=== PATIENT | female | born 1975 | race Caucasian/White ===

== ENCOUNTER 2020-03-19 15:13 | Outpatient (REF) | payer MEDICAID, SELFPAY | END 2020-03-19 15:14 | disposition home or self-care (01) | LOC: HO.LAB 15:13 | PROVIDERS: Visit Provider Internal Medicine | DX: Z20.822 Contact with and (suspected) exposure to COVID-19 (principal) | CPT/HCPCS: 36415; C9803; U0003 ==

== ENCOUNTER 2020-04-04 17:08 | Outpatient (REF) | payer MEDICAID, SELFPAY | END 2020-04-04 17:09 | disposition home or self-care (01) | LOC: HO.LAB 17:08 | PROVIDERS: Visit Provider Internal Medicine | DX: Z20.822 Contact with and (suspected) exposure to COVID-19 (principal) | CPT/HCPCS: 36415; C9803; U0003; U0005 ==

== ENCOUNTER 2021-02-13 09:47 | Outpatient (REF) | payer MEDICAID, SELFPAY ==
[2021-02-13 10:08] LABS: COVID-19 Test Negative (Negative)
== END 2021-02-13 09:48 | disposition home or self-care (01) ==
LOC: HO.LAB 09:47
PROVIDERS: Visit Provider Internal Medicine
DX: Z20.822 Contact with and (suspected) exposure to COVID-19 (principal)
CPT/HCPCS: 36415; 87635; C9803

== ENCOUNTER 2021-03-11 09:37 | Outpatient (REF) | payer MEDICAID, SELFPAY ==
[2021-03-11 12:21] LABS: Binax Internal Control QC Valid; Binax Lot number: 17705; Binax Now Covid-19 Ag Negative (Negative)
== END 2021-03-11 09:38 | disposition home or self-care (01) ==
LOC: HO.LAB 09:37
PROVIDERS: Visit Provider Internal Medicine
DX: Z20.822 Contact with and (suspected) exposure to COVID-19 (principal)
CPT/HCPCS: 36415; C9803

== ENCOUNTER 2021-03-27 09:55 | Outpatient (REF) | payer MEDICAID, SELFPAY ==
--- NOTE | ~2021-03-27 | MM_ITS ---
EXAMINATION: MM SCREENING DIGITAL BREAST TOMOSYNTHESIS, BILATERAL CLINICAL INFORMATION: Screening. Asymptomatic. The lifetime risk of breast cancer based on the Tyrer-Cuzick Model is 12%. COMPARISON: Mammography: 06/25/2016, 04/18/2015 TECHNIQUE: Digital breast tomosynthesis is performed in both the craniocaudal and mediolateral oblique views along with computer-aided detection (CAD). Synthesized 2D images are generated from the tomosynthesis. FINDINGS: The breasts are heterogeneously dense, which may obscure small masses (ACR BI-RADS breast composition Category c). There are probable fibrocystic changes mid upper outer right breast with several grouped smooth round masses ranging in size from up to 1.6 cm. Patient will be recalled for additional targeted ultrasound. The remainder of the breasts show no significant changes from prior studies. There are no abnormal calcifications. No architectural abnormality. The axilla and skin contours are unremarkable. MM/MM tomosynthesis screening BI IMPRESSION: 1. Right: Probable fibrocystic changes mid upper outer quadrant. 2. Left: No mammographic evidence of malignancy. ASSESSMENT: BI-RADS 0: Incomplete - Need Additional Imaging Evaluation RECOMMENDATION: 1. Targeted ultrasound right breast. 2. Radiology department staff will contact the patient for additional imaging. This patient's information was entered into a reminder system with a target due date for their next mammogram.
== END 2021-03-27 09:56 | disposition home or self-care (01) ==
LOC: HO.MAMMO 09:55
PROVIDERS: PCP Student in an Organized Health Care Education/Training Program; Visit Provider Student in an Organized Health Care Education/Training Program
DX: Z12.31 Encounter for screening mammogram for malignant neoplasm of breast (principal)
CPT/HCPCS: 77063; 77067

== ENCOUNTER 2021-04-02 10:52 | Outpatient (REF) | payer MEDICAID, SELFPAY ==
--- NOTE | ~2021-04-02 | US_ITS ---
EXAMINATION: US DIAGNOSTIC ULTRASOUND BREAST, RIGHT CLINICAL INFORMATION: Recall from screening for probable fibrocystic changes mid upper outer right breast. COMPARISON: Mammography 03/27/2021, 06/25/2016, 04/18/2015 (baseline). TECHNIQUE: Ultrasound right breast is targeted to the upper outer quadrant. Grayscale imaging and color Doppler are performed without and with harmonics. FINDINGS: There are multiple regional simple cysts in the area of recent mammographic concern upper outer quadrant right breast. Largest cyst is approximately 1.9 x 0.8 cm. Several smaller subcentimeter cysts are also present. There is no solid mass, architectural abnormality, duct ectasia, or edema in the soft tissue planes. Results are discussed with the patient at time of visit. US/US breast RT limited IMPRESSION: Regional simple cysts upper outer right breast corresponding to recent mammography. ASSESSMENT: BI-RADS 2: Benign RECOMMENDATION: Routine annual mammography screening. This patient's information was entered into a reminder system with a target due date for their next mammogram.
== END 2021-04-02 10:53 | disposition home or self-care (01) ==
LOC: HO.MAMMO 10:52
PROVIDERS: Visit Provider Student in an Organized Health Care Education/Training Program
DX: N60.11 Diffuse cystic mastopathy of right breast (principal)
CPT/HCPCS: 76642

== ENCOUNTER 2021-09-30 11:26 | Outpatient (REF) | payer MEDICAID, SELFPAY ==
[2021-09-30 12:03] LABS: COVID-19 Test Negative (Negative); IDNOW Serial# 08D9AD1C
== END 2021-09-30 11:27 | disposition home or self-care (01) ==
LOC: HO.LAB 11:26
PROVIDERS: Visit Provider Internal Medicine
DX: Z20.822 Contact with and (suspected) exposure to COVID-19 (principal)
CPT/HCPCS: 87635; C9803

== ENCOUNTER 2022-04-02 10:00 | Outpatient (REF) | payer MEDICAID, SELFPAY ==
--- NOTE | ~2022-04-02 | MM_ITS ---
EXAMINATION: MM SCREENING DIGITAL BREAST TOMOSYNTHESIS, BILATERAL CLINICAL INFORMATION: Screening. Asymptomatic. The lifetime risk of breast cancer based on the Tyrer-Cuzick Model is 11%. COMPARISON: Mammography: 03/27/2021, 06/25/2016, 04/18/2015; right breast ultrasound 04/02/2021 TECHNIQUE: Digital breast tomosynthesis is performed in both the craniocaudal and mediolateral oblique views along with computer-aided detection (CAD). Synthesized 2D images are generated from the tomosynthesis. FINDINGS: The breasts are heterogeneously dense, which may obscure small masses (ACR BI-RADS breast composition Category c). There are no significant masses, abnormal calcifications, or other abnormalities. Fibrocystic changes upper outer right breast are decreased from prior exam. The axilla and skin contours are unremarkable. MM/MM tomosynthesis screening BI IMPRESSION: No mammographic evidence of malignancy. ASSESSMENT: BI-RADS 2: Benign RECOMMENDATION: Routine annual mammography screening. This patient's information was entered into a reminder system with a target due date for their next mammogram.
== END 2022-04-02 10:01 | disposition home or self-care (01) ==
LOC: HO.MAMMO 10:00
PROVIDERS: Visit Provider Student in an Organized Health Care Education/Training Program
DX: Z12.31 Encounter for screening mammogram for malignant neoplasm of breast (principal)
CPT/HCPCS: 77063; 77067

== ENCOUNTER 2023-01-27 10:10 | Outpatient (REF) | payer MEDICAID, SELFPAY ==
[2023-01-27 14:52] LABS: Alanine Aminotransferase 13 U/L (0-31); Albumin Level 4.1 g/dL (3.5-5.0); Alkaline Phosphatase 44 U/L (39-117); Anion Gap 10 (12-20); Aspartate Amino Transferase 14 U/L (5-31); Bilirubin Direct 0.1 mg/dL (0.0-0.5); Bilirubin Total 0.3 mg/dL (0.0-1.0); Blood Urea Nitrogen 11 mg/dL (9-16); Carbon Dioxide 26 mmol/L (22-29); Chloride 103 mmol/L (96-108); Cholesterol 224 mg/dL (<200); Estimated Glomerular Filt Rate > 60; Glucose Random 71 mg/dL (60-115); HDL Cholesterol 61 mg/dL (>40); LDL Cholesterol Calculated 142 mg/dL (<100); Potassium 3.7 mmol/L (3.3-5.1); Sodium 135 mmol/L (135-145); Triglycerides 107 mg/dL (<150)
== END 2023-01-27 10:11 | disposition home or self-care (01) ==
LOC: HO.CHCLDS 10:10
PROVIDERS: Visit Provider Student in an Organized Health Care Education/Training Program
DX: E66.9 Obesity, unspecified (principal)
CPT/HCPCS: 36415; 80048; 80061; 80076

== ENCOUNTER → 2023-01-28 09:39 | Outpatient (REF) | payer MEDICAID, SELFPAY ==
--- NOTE | 2023-01-28 09:43 | HM_ITS ---
Conclusion: 1. Patient was monitored for total period of 2 days 2. Baseline was normal sinus with average heart of 88 beats per minute 3. No significant pauses noted 4. Rare PVCs noted 5. No patient reported symptoms MTDD
== END ==
LOC: HO.CARD 09:39
PROVIDERS: PCP Student in an Organized Health Care Education/Training Program; Visit Provider Student in an Organized Health Care Education/Training Program
DX: R00.2 Palpitations (principal)
CPT/HCPCS: 93225

== ENCOUNTER → 2023-01-28 09:43 | Outpatient (BNV) | payer MEDICAID, SELFPAY | PROVIDERS: PCP Student in an Organized Health Care Education/Training Program; Visit Provider Internal Medicine Cardiovascular Disease | DX: I49.3 Ventricular premature depolarization (principal) | CPT/HCPCS: 93227 ==

== ENCOUNTER 2023-04-07 10:14 | Outpatient (REF) | payer MEDICAID, SELFPAY | END 2023-04-07 10:15 | disposition home or self-care (01) | LOC: HO.MAMMO 10:14 | PROVIDERS: PCP Student in an Organized Health Care Education/Training Program; Visit Provider Student in an Organized Health Care Education/Training Program | DX: Z12.31 Encounter for screening mammogram for malignant neoplasm of breast (principal) | CPT/HCPCS: 77063; 77067 ==

== ENCOUNTER → 2023-04-07 10:15 | Outpatient (BNV) | payer MEDICAID, SELFPAY | PROVIDERS: PCP Student in an Organized Health Care Education/Training Program; Visit Provider Radiology Diagnostic Radiology | DX: Z12.31 Encounter for screening mammogram for malignant neoplasm of breast (principal) | CPT/HCPCS: 77063; 77067 ==

== ENCOUNTER 2024-01-27 | Outpatient (REF) | payer MEDICAID, SELFPAY ==
[2024-02-01 10:47] LABS: HPV 16,18/45 See PAP report
== END 2024-01-27 00:01 | disposition home or self-care (01) ==
LOC: HO.LNP
PROVIDERS: Visit Provider Advanced Practice Midwife
DX: R87.610 Atypical squamous cells of undetermined significance on cytologic smear of cervix (ASC-US) (principal)
CPT/HCPCS: 87624; 88175

== ENCOUNTER 2024-04-13 10:37 | Outpatient (REF) | payer MEDICAID, SELFPAY ==
--- OUTSIDE RECORDS SUMMARY | 2024-04-13 12:23 | XMS_ITS | Clinical Summary ---
Author Organization [facility] Address [address] [place] [address] [address] [place] [address] Care Team Providers Care Blank Driller Name Role Phone Janet Walton MD Primary Care Provider [phone] Allergies Active Allergy Reactions Criticality Noted Date Comments Aspirin Hives High 01/19/2023 Medications albuterol (2.5 MG/3ML) 0.083% nebulizer solution Inhale 3 mL every 4 (four) hours. 04/10/2015 Active albuterol (ProAir HFA) 108 (90 Base) MCG/ACT inhaler Inhale every 6 (six) hours. 04/02/2015 Active loratadine (Claritin) 10 MG tablet Take 1 tablet by mouth in the morning. 04/10/2015 Active Active Problems Problem Noted Date Diagnosed Date ASCUS of cervix with negative high risk HPV 01/01 Assessment & Plan (01/27/2023 4:18 PM EST): -hx of ASCUS -repeat testing in 3 years pending results Asthma 03/14/2013 01/19/2023 Umbilical hernia 07/29/2011 01/19/2023 Assessment & Plan (01/27/2023 4:27 PM EST): -stable at this time -report onset of pain or if no longer reducible Encounters Date Type Department Care Team Description 01/27/2024 10:00 AM EST Procedure Visit [facility] [address] [place], [place] [id number] Smita Thomson CNM ASCUS of cervix with negative high risk HPV (Primary Dx); Tinea cruris; Perimenopausal vasomotor symptoms 01/27/2024 Travel 01/20/2024 Travel from Last 3 Months Immunizations Name Administration Dates Next Due Hep B, adult 08/11/2012,08/26/2011,07/29/2011 Tdap 01/19/2023,08/26/2011 Family History Medical History Relation Name Comments Bilateral breast cancer Mother's Sister Relation Name Status Comments Mother's Sister Social History Tobacco Use Types Packs/Day Years Used Date Smoking Tobacco: Never Smokeless Tobacco: Never Tobacco Cessation:Counseling Given: Not Answered Alcohol Use Standard Drinks/Week Comments Never 0 (1 standard drink = 0.6 oz pur e alcohol) Depression Answer Date Recorded Patient Health Questionnaire-9 Score 0 01/19/2023 Patient Health Questionnaire-9 Score 0 01/19/2023 Last PHQ-9: Questionnaire Data Not on file 1 03/21/2022 Depression Answer Date Recorded Patient Health Questionnaire-2 Score 0 01/19/2023 Comments No Sex and Gender Information Value Date Recorded Sex Assigned at Female 12/30/2021 10:20 AM EDT Legal Sex Female 10:20 AM EDT Gender Identity Female 12/30/2021 10:20 AM EDT Sexual Orientation Choose not to disclose 2021 10:20 AM EDT Last Filed Vital Signs Vital Sign Reading Time Taken Comments Blood Pressure 132/79 01/27/2024 10:09 AM EST Pulse 80 01/27/2024 10:09 AM EST Temperature 36.4 ??C (97.6 ??F) 01/27/2024 10:[address] Respiratory Rate 20 01/27/2024 10:09 AM EST Oxygen Saturation - - Inhaled Oxygen Concentration - - Weight 82.7 kg (182 lb 6.4 oz) 01/27/2024 10:09 AM EST Height 157.5 cm (5' 2 ) 01/27/2024 10:09 AM EST Body Mass Index 33.36 01/27/2024 10:09 AM EST Plan of Treatment Health Maintenance Due Date Last Done Comments CT Colonography 1975 Colonoscopy 1975 FIT 1975 FOBT 1975 HIV Screening 1975 SDOH Screening 1975 Sigmoidoscopy 1975 Alcohol/Substance Use Screening 1987 Family Planning (PISQ) 1990 Hepatitis C Screening 1993 Pneumococcal Vaccine: Pediatrics (0 to 5 Years) and At-Risk Patients (6 to 49) Years) (1 of 2 - PCV) 1994 COVID-19 Vaccine (4 - 2023-2 5 season) 2023 03/15/2022, 06/28/2020, 06/01/2020 Influenza Vaccine (#1) 2023 Depression Screening 01/20/2024 01/19/2023, 01/19/2023 Mammogram 04/07/2024 04/07/2023, 04/02/2022, 03/27/2021 Tobacco Screening 01/26/2025 01/27/2024 Zoster Vaccines (1 of 2) 2025 Colorectal Cancer Screening 03/03/2026 FIT DNA/Cologuard 03/03/2026 03/03/2023 Lipid Panel 01/28/2028 01/27/2023, 02/05/2021 Cervical Cancer Screening 01/26/2029 HPV/Cotest 01/26/2029 02/04/2021, 08/25/2017 Pap Smear 01/26/2029 01/27/2024, 02/04/2021 DTaP/Tdap/Td Vaccines (3 - T d or Tdap) 01/19/2033 01/19/2023, 08/26/2011 RSV Patients and Patients Aged 60 years or older (1 - 1-dose 75+ series) 2050 Hepatitis B Vaccines Completed 08/11/2012, 08/26/2011, 07/29/2011 HIB Vaccines Aged Out No longer eligi ble based on patient's age to complete this topic HPV Vaccines Aged Out No longer eligi ble based on patient's age to complete this topic Hepatitis A Vaccines Aged Out No long er eligible based on patient's age to complete this topic IPV Vaccines Aged Out No longer eligi ble based on patient's age to complete this topic Meningococcal Vaccine Aged Out No rich majo eligible based on patient's age to complete this topic RSV under 20 months Aged Out No longe r eligible based on patient's age to complete this topic Rotavirus Vaccines Aged Out No longer eligible based on patient's age to complete this topic Procedures Procedure Name Priority Date/Time Associated Diagnosis Comments PAP SMEAR Routine 01/27/2024 10:18 AM EST ASCUS of cervix with negative high risk HPV BI MAMMOGRAM SCREENING TOMOSYNTHESIS BILATERAL Routine 04/07/2023 10:35 AM EST LAB COLOGUARD?? COLON CANCER SCREEN Routine 03/03/2023 8:35 PM EST Encounter for screening for malignant neoplasm of colon LIPID PANEL, STANDARD Routine 01/27/2023 10:13 AM EST Obesity (BMI 30-39.9) HPV MRNA E6/E7 Routine 02/04/2021 10:41 AM EST from Last 3 Months or Most Recently Relevant to Health Maintenance Results * Pap Smear (01/27/2024 10:18 AM EST) Swab Cervix uteri structure / Unknown 01/27/2024 10:18 AM EST 02/01/2024 9:30 AM EST Narrative [facility] - 02/04/2024 10:14 AM EST ----- ------- Name: Lexy Richards ?Age/Sex: 48/F ? : 1975 Unit#: [id number] ?? Attend Dr: ?Re01/27/24 ?Status: PRE REF ? Location: HO.LNP ?Disch: ? ----- ------- SPEC : [id number] ?RECD: 02/01/24 ? STATUS: ??SOUT ? REQ NUM: [id number] ? STEFFANY: 01/27/24 ? SUBM DR: SMITA THOMSON CNM ? ENTERED: ??02/01/24 ?SP TYPE: Pap Smr ?OTHR DR: ? ORDERED: ??Pap Smear ? Interpretation ?? Satisfactory for evaluation. ?? Negative for intraepithelial lesion or malignancy. ? HPV High Risk: ??Negative ? HPV Genotyping 16: ??Negative ?? HPV Genotyping 18: ??Negative ?Clinical Information LMP: Unknown date Previous PAP test: 2020, ASCUS, HPV neg ? Material Received ?? ThinPrep-Cervical ----- ------- Signed (signature on file) FLOR[facility] Polanco ([facility] 02/04/24 1014 ? ----- ------- ? END OF REPORT ? us Smita Thomson [facility] CYTOLOGY ORDERABLES F inal Result [facility] [address] [place] [phone] * BI Mammogram Screening Tomosynthesis Bilateral (04/07/2023 10:35 AM EST) Anatomical Region Laterality Modality Breast Bilateral Mammography 04/07/2023 10:3 5 AM EST Narrative 05/02/2023 4:32 PM EST ? [facility] [place] ? [address] [facility] ?[place] [address] ? Mammography Report ? Signed ? Patient: Maurice,Lexy ?MR#: [id number] ?? 8 ? : 1975 ?Acct:[id number] ? Age/Sex: 48 / F ?ADM Date: 02/06/24 ? Loc: HO.MAMMO ? Attending Dr: Janet Walton MD ? Ordering Physician: Janet Walton MD ?Results: 1Negati ?? ve ? Date of Service: 04/07/23 ?Follow Up: 1 Year From Orig ?? inal Mammogram ? Procedure(s): MM tomosynthesis screening BI ?? Accession Number(s): [id number] ? cc: Janet Walton MD ? EXAMINATION: ?? MM SCREENING DIGITAL BREAST TOMOSYNTHESIS, BILATERAL ? CLINICAL INFORMATION: ? Screening. Asymptomatic. ? COMPARISON: ?? Mammography: This study is compared with prior exams dating back to ?? 2017. ? TECHNIQUE: ?? Digital breast tomosynthesis is performed in both the craniocaudal and ?? mediolateral oblique views along with computer-aided detection (CAD). ?? Synthesized 2D images are generated from the tomosynthesis. ? FINDINGS: ?? The breasts are heterogeneously dense, which may obscure small masses ?? (ACR BI-RADS breast composition Category c). ? There are no significant masses, abnormal calcifications, or other ?? abnormalities. ? MM/MM tomosynthesis screening BI ?? IMPRESSION: ?? No mammographic evidence of malignancy. ? ASSESSMENT: ? BI-RADS BI-RADS 1 - Negative ? RECOMMENDATION: ?? Routine annual mammography screening. ? 1 year F/U ? This examination should not preclude the clinical evaluation of a ?? suspicious palpable abnormality. ? This patient's information was entered into a reminder system with a ?? target due date for their next mammogram. ? Dictated By: ?Jia Licea MD ? Signed By: ?<Electronically signed by Jia Licea MD in OV> ? 05/02/23 1628 ? DD/ 1035 ? TD/TT: ? Breast Trimmer: ? Procedure Note Donotuseinterpreter, Image - 05/02/2023 [facility] [address] [place] [address] Mammography Report Signed Patient: Liliana Richards#: [id number] 8 : 1975Acct:[id number] Age/Sex: 48 / FADM Date: 04/07/23 Loc: HO.MAMMO Attending Dr: Janet Walton MD Ordering Physician: Janet Walton MDResults: 1Negati ve Date of Service: 04/07/23Follow Up: 1 Year From Orig inal Mammogram Procedure(s): MM tomosynthesis screening BI Accession Number(s): [id number] cc: Janet Walton MD EXAMINATION: MM SCREENING DIGITAL BREAST TOMOSYNTHESIS, BILATERAL CLINICAL INFORMATION: Screening. Asymptomatic. COMPARISON: Mammography: This study is compared with prior exams dating back to 2017. TECHNIQUE: Digital breast tomosynthesis is performed in both the craniocaudal and mediolateral oblique views along with computer-aided detection (CAD). Synthesized 2D images are generated from the tomosynthesis. FINDINGS: The breasts are heterogeneously dense, which may obscure small masses (ACR BI-RADS breast composition Category c). There are no significant masses, abnormal calcifications, or other abnormalities. MM/MM tomosynthesis screening BI IMPRESSION: No mammographic evidence of malignancy. ASSESSMENT: BI-RADS BI-RADS 1 - Negative RECOMMENDATION: Routine annual mammography screening. 1 year F/U This examination should not preclude the clinical evaluation of a suspicious palpable abnormality. This patient's information was entered into a reminder system with a target due date for their next mammogram. Dictated By: Jia Licea MD Signed By: <Electronically signed by Jia Licea MD in OV> 05/02/23 1628 DD/ 1035 TD/TT: Breast Trimmer: Janet Walton MD IMG BI PROCEDURES Edited Result - Final * Cologuard?? colon cancer screening (03/03/2023 8:35 PM EST) Cologuard Result Negative Negative 03/12/19 4:26 AM EST [facility] (CLIA #:[id number]) Comment: NEGATIVE TEST RESULT. A negative Cologuard result indicates a low likelihood that a colorectal cancer (CRC) or advanced adenoma (adenomatous polyps with more advanced pre-malignant features) ??is present. The chance that a person with a negative Cologuard test has a colorectal cancer is less than 1 in 1500 (negative predictive value >99.9%) or has an ??advanced adenoma is less than ??5.3% (negative predictive value 94.7%). These data are based on a prospective cross-sectional study of 10,000 individuals at average risk for colorectal cancer who were screened with both Cologuard and colonoscopy. (Guanaco Gongora et al, N Engl J Med 2014;370(14):1286- 1297) The normal value (reference range) for this assay is negative. COLOGUARD RE-SCREENING RECOMMENDATION: Periodic colorectal cancer screening is an important part of preventive healthcare for asymptomatic individuals at average risk for colorectal cancer. ??Following a negative Cologuard result, the [place] [employer] and U.S. Multi-Society Task Force screening guidelines recommend a Cologuard re-screening interval of 3 years. References: [place] [employer] Guideline for Colorectal Cancer Screening: https://www.cancer.org/cancer/brhhe-nbpkwo-ecpnvm/afmfaaefe-tfhyhcvha-lqghivw/ac s-rec ommendations.html.; Eze DK, Rosario CR, Emily MendietaK, Colorectal Cancer Screening: Recommendations for Physicians and Patients from the U.S. Multi-Society Task Force on Colorectal Cancer Screening , Am J Gastroenterology 2017; 112:3718-8536. TEST DESCRIPTION: Composite algorithmic analysis of stool DNA-biomarkers with hemoglobin immunoassay. ?? Quantitative values of individual biomarkers are not reportable and are not associated with individual biomarker result reference ranges. Cologuard is intended for colorectal cancer screening of adults of either sex, 45 years or older, who are at average-risk for colorectal cancer (CRC). Cologuard has been approved for use by the U.S. FDA. The performance of Cologuard was established in a cross sectional study of average-risk adults aged 50-84. Cologuard performance in patients ages 45 to 49 years was estimated by sub-group analysis of near-age groups. Colonoscopies performed for a positive result may find as the most clinically significant lesion: colorectal cancer [4.0%], advanced adenoma (including sessile serrated polyps greater than or equal to 1cm diameter) [20%] or non- advanced adenoma [31%]; or no colorectal neoplasia [45%]. These estimates are derived from a prospective cross-sectional screening study of 10,000 individuals at average risk for colorectal cancer who were screened with both Cologuard and colonoscopy. (Guanaco Quintero al, N Engl J Med 2014;370(14):6160-7237.) Cologuard may produce a false negative or false positive result (no colorectal cancer or precancerous polyp present at colonoscopy follow up). A negative Cologuard test result does not guarantee the absence of CRC or advanced adenoma (pre-cancer). The current Cologuard screening interval is every 3 years. ([place] [employer] and U.S. Multi-Society Task Force). Cologuard performance data in a 10,000 patient pivotal study using colonoscopy as the reference method can be accessed at the following location: www.[email or web address].Pin[employer].cn/results. Additional description of the Cologuard test process, warnings and precautions can be found at www.[employer].com. Stool specimen (specimen) 03/03/2023 8:35 PM EST 03/05/2023 1:48 PM EST us Janet Walton MD LAB MOLECULAR DIAGNOSTICS ORDERA BLES Final Result [facility] (CLIA #:[id number]) [place] [address], * (ABNORMAL) Lipid Panel, Standard (01/27/2023 10:13 AM EST) Triglycerides 107 <150 mg/dL [facility] Comment:Desirable Triglyceri de: less than 150 mg/dLBorderline High Triglyceride 150-199 mg/dLHigh Triglyceride: 200-499 mg/dLVery High Triglyceride: greater than or equal to 5OO mg/dL Cholesterol 224(H) <200 mg/dL [facility] Comment:Desirable Cholestero l: less than 200 mg/dLBorderline High Cholesterol: 200-239 mg/dLHigh Cholesterol: greater than 239 mg/dL LDL Cholesterol Calculated 142(H) <100 mg/dL [facility] Comment:Desirable LDL: less than 100 mg/dLNear Optimal/Above Optimal LDL: 110- 129 mg/dLBorderline High LDL: 130-159 mg/dLHigh LDL: 160-189 mg/dLVery High LDL: greater than or equal to 190 mg/dL HDL Cholesterol 61 >40 mg/dL [facility] Comment:Desirable HDL: great er than 40 mg/dL Note: This HDL assay may give artificially low results in patients with liver disease. Blood Venous blood specimen / Unknown 01/27/2023 10:13 AM EST 01/27/2023 2:32 PM EST us Janet Walton MD LAB BLOOD ORDERABLES Final Resul t [facility] [address] [place] [phone] * HPV mRNA E6/E7 (02/04/2021 10:41 AM EST) HPV nRNA E6/E7 Not Detected Not Detected [facility] Comment: Methodology: Cylinder Die Machine Operator-Mediated Amplification This assay detects E6/E7 viral messenger RNA (mRNA) from 14 high-risk HPV types (16,18,31,33,35,39,45,51,52,56,58,59,66,68). ? The analytical performance characteristics of this assay have been determined by [employer]. The modifications have not been cleared or approved by the FDA. This assay has been validated pursuant to the CLIA regulations and is used for clinical purposes. ?? For additional information, please refer to http://education.[employer].Pinwine.cn/faq/ANJ880y3 (This link if provided for information/ educational purposes only.) 02/04/2021 10:4 1 AM EST Janet Walton MD LAB BLOOD ORDERABLES Final Resul t [facility] [address] from Last 3 Months or Most Recently Relevant to Health Maintenance Insurance [address] [place], [place] [address] C[employer] Care Teams Blank Driller Relationship Specialty Start Date End Date Janet Walton MD [address] [place] [phone] PCP - General Family Medicine 03/08/13
== END 2024-04-13 10:38 | disposition home or self-care (01) ==
LOC: HO.MAMMO 10:37
PROVIDERS: PCP Student in an Organized Health Care Education/Training Program; Visit Provider Student in an Organized Health Care Education/Training Program
DX: Z12.31 Encounter for screening mammogram for malignant neoplasm of breast (principal)
CPT/HCPCS: 77063; 77067

== ENCOUNTER → 2024-04-13 10:45 | Outpatient (BNV) | payer MEDICAID, SELFPAY | PROVIDERS: PCP Student in an Organized Health Care Education/Training Program; Visit Provider Internal Medicine | DX: Z12.31 Encounter for screening mammogram for malignant neoplasm of breast (principal) | CPT/HCPCS: 77063; 77067 ==